=== PATIENT | male | born 1960 | race Caucasian/White ===

== ENCOUNTER 2018-04-06 10:25 | Emergency (ER) | payer OTHER ==
[~2018-04-06] VITALS: Ht 172.7 cm; Wt 68.0 kg
[~2018-04-06 10:25] MED LIST: CYMBALTA20 MG PO; DURAGESIC1 EAC2; GARAMYCIN5 M1 OP
[2018-04-06] MEDS ORDERED: KEFLEX500 M1 PO (11:00)
[2018-04-06 11:20] VITALS: BP 145/76
== END 2018-04-06 11:20 | disposition home or self-care (01) ==
LOC: ER 10:25
DX: S61.212A Laceration without foreign body of right middle finger without damage to nail, initial encounter (principal); G89.29 Other chronic pain; M54.2 Cervicalgia; W20.8XXA Other cause of strike by thrown, projected or falling object, initial encounter; Y92.89 Other specified places as the place of occurrence of the external cause; Y93.89 Activity, other specified; Y99.8 Other external cause status